=== PATIENT | female | born 1960 | race Caucasian/White ===

== ENCOUNTER → 2022-05-17 11:46 | Outpatient (BNVA) | payer MEDICARE, MEDICAID, SELFPAY | PROVIDERS: PCP Internal Medicine; Visit Provider Nurse Practitioner Family | DX: G40.909 Epilepsy, unspecified, not intractable, without status epilepticus (principal); R32 Unspecified urinary incontinence; R27.0 Ataxia, unspecified | CPT/HCPCS: 99202 ==

== ENCOUNTER → 2022-09-02 10:40 | Outpatient (BNVA) | payer MEDICARE, MEDICAID, SELFPAY | PROVIDERS: PCP Internal Medicine; Visit Provider Nurse Practitioner Family | DX: G40.909 Epilepsy, unspecified, not intractable, without status epilepticus (principal); G47.9 Sleep disorder, unspecified; G47.19 Other hypersomnia; M79.2 Neuralgia and neuritis, unspecified; R06.83 Snoring; R41.89 Other symptoms and signs involving cognitive functions and awareness | CPT/HCPCS: 99212 ==

== ENCOUNTER 2025-04-20 13:58 | Outpatient (AMB) | payer MEDICARE, MEDICAID, SELFPAY ==
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
[2025-04-20 14:04] VITALS: BP 108/70; PULSE 79; O2SAT 97; BMI 20.3
--- OUTSIDE RECORDS SUMMARY | 2025-04-20 15:12 | XMS_ITS ---
Author Organization [facility] Address [address] [place] [address] Phone Care Team Providers Care Corrections Identification Technician Name Role Phone Linda Rowland MD Primary Care Provider [phone] Community Health Worker Program Status:Ongoing (Active) Start date:01/19/2025 Enrollment date:01/19/2025 Enrollment reason:Referred from clinic Current support & services provided:Adult Related service episodes:[facility] - Food Insecurity (Active) Overview Community Health Worker Program Case Team Name Relationship Phone Js Garnett(Responsible Staff) Community Health Worker Continued Care and Services Coordination
--- OUTSIDE RECORDS SUMMARY | 2025-04-20 15:12 | XMS_ITS | Clinical Summary ---
Author Organization [facility] Address [address] [place] [address] Phone Care Team Providers Care Human Resources Training Manager Name Role Phone Linda Rowland MD Primary Care Provider [phone] Allergies Active Allergy Reactions Criticality Noted Date Comments Aspirin Unknown 06/11/2014 Azithromycin Rash,Unknown 06/11/2014 Cefaclor 07/22/2014 Cephalexin Unknown 06/11/2014 Ibuprofen Unknown 06/11/2014 menorrhagia Penicillins Unknown 06/11/2014 Prednisone Anaphylaxis High 06/04/2014 Tetracyclines 02/05/2021 Medications ergocalciferol (VITAMIN D-2) 1,250 mcg (50,000 unit) capsule TAKE 1 CAPSULE BY MOUTH 1 TIME A WEEK 12 capsule 1 4 Active folic acid (FOLVITE) 1 mg tablet TAKE 1 TABLET BY MOUTH DAILY 90 tablet 2 4 Active acetaminophen (TYLENOL) 500 mg tablet Take 1 tablet (500 mg total) by mouth if needed. 1 Active EPINEPHrine (EpiPen 2-Jayden) 0.3 mg/0.3 mL injection Inject 1 Dose as directed if needed (for Other.). 9 Active thiamine (Vitamin B-1) 100 mg tablet Take 1 tablet (100 mg total) by mouth 1 (one) time each day. 0 Active lidocaine HCL (Alocane Emergency Burn) 4 % pads, medicated Apply 2 patches topically. 4 Active hydrocortisone 2.5 % cream Apply topically 2 (two) times a day. Active B complex tablet Take 1 tablet by mouth 1 (one) time each day. 1 Active betamethasone dipropionate (DIPROSONE) 0.05 % ointment Apply topically 2 (two) times a day. Active multivitamin (Multiple Vitamins) tablet Take 1 tablet by mouth 1 (one) time each day. 5 Active ferrous sulfate (FeroSuL) 325 mg (65 mg elemental iron) tablet Take 1 tablet (325 mg total) by mouth 3 (three) times a week. 30 tablet 5 5 Active docusate sodium (COLACE) 100 mg capsule Take 1 capsule (100 mg total) by mouth 2 (two) times a day. 180 capsule 3 5 Active pantoprazole (PROTONIX) 40 mg EC tablet TAKE 1 TABLET BY MOUTH DAILY 90 tablet 1 5 Active DULoxetine (CYMBALTA) [address] capsule TAKE 1 CAPSULE BY MOUTH DAILY 90 capsule 1 5 Active gabapentin (NEURONTIN) 600 mg tablet Take 1 tablet (600 mg total) by mouth 3 (three) times a day. 90 each 5 5 Active cefpodoxime (VANTIN) 200 mg tablet Take 1 tablet (200 mg total) by mouth every 12 (twelve) hours. for 5 days 5 Active lacosamide (VIMPAT) 100 mg tablet Take 1 tablet (100 mg total) by mouth 2 (two) times a day. 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, unspecified ([facility] V24, [facility] V28) 08/04/2024 Epilepsy, unspecified, not i ntractable, without status epilepticus ([facility] V24, [facility] V28) 08/04/2024 Major depressive disorder, r ecurrent, unspecified ([facility] V24) 08/04/2024 Anxiety disorder, unspecified 08/04/2024 Incontinence without sensory awareness 5 Full incontinence of feces 08/04/2024 SOB (shortness of breath) 10/01/2023 Syncope 10/01/2023 Other chest pain 03/28/2022 Congestive heart failure ([facility] V24, [facility] V 28) 04/25/2021 Essential hypertension 02/05/2021 Assessment & Plan (09/15/2024 12:37 PM EST): Mitral valve regurgitation 02/05/2021 Assessment & Plan (09/15/2024 12:37 PM EST): Anxiety 06/22/2018 Alcohol dependence ([facility] V24, [facility] V28) Overview (07/15/2024): History alcohol withdrawal 03/2018 Hepatitis C virus 04/10/2018 Hyperlipidemia 04/10/2018 Depression 01/02/2018 Bowel incontinence 11/21/2017 Foot fracture, left 11/21/2017 Overview (07/15/2024): 11/2017 Neuropathic pain 11/21/2017 Hematuria 08/04/2017 Seizure disorder ([facility] V24, [facility] V28) 09/2016 Assessment & Plan (09/15/2024 12:37 PM EST): Orders: Ambulatory referral to Neurology; Future Urinary incontinence without sensory awareness 1 Decubitus ulcer of coccygeal region 07/20/2014 Encounters Date Type Department Care Team Description 04/11/2025 Telephone Internal Medicine [facility] [address] [phone] Zahraa Dent MA 03/18/2025 Telephone Internal Medicine [facility] [address] [address] Linda Rowland MD 03/18/2025 Telephone Internal Medicine [facility] [address] [address] Zahraa Dent [place] 03/17/2025 1:30 PM EDT Office Visit Internal Medicine [facility] [address] [address] Linda Rowland MD Seizure disorder ([facility] V24, [facility] V28) (Primary Dx) 03/16/2025 Telephone Internal Medicine [facility] [address] [address] Linad Rowland MD 03/16/2025 Telephone Internal Medicine [facility] [address] [address] Colon, AVERY Vital 03/14/2025 [place] Internal [place] [facility] [address] [address] Linda Rowland MD 03/04/2025 11:00 AM EDT Office Visit Internal Medicine [address] [address] Linda Rowland MD Seizure disorder (CMS/HCC V24, CMS/HCC V28) (Primary Dx); Mixed hyperlipidemia; Essential hypertension 03/04/2025 Telephone Internal Medicine [facility] [address] [address] Linda Rowland MD 03/04/2025 Telephone Internal Medicine [facility] [address] [address] Linda Rowland MD 03/01/2025 Telephone Internal Medicine [facility] [address] [address] Colon, AVERY Vital 03/01/2025 [place] Internal Medicine [facility] [address] [address] Colon, AVERY Vital 02/18/2025 Telephone Internal Medicine [facility] [address] [address] Colon, AVERY Vital 02/18/2025 Telephone Internal Medicine [facility] [address] [address] Colon, AVERY Vital 02/16/2025 Telephone Internal Medicine [facility] [address] [address] Linda Rowland MD 02/15/2025 Telephone Internal Medicine [facility] [address] [address] Linda Rowland MD 02/08/2025 Telephone Internal Medicine [facility] [address] [address] Zahraa Dent MA 02/08/2025 Telephone Internal Medicine [facility] [address] [address] Zahraa Dent MA 02/07/2025 Telephone Internal Medicine [facility] [address] [address] Linda Rowland MD 02/04/2025 Telephone Internal Medicine [address] [address] Linda Rowland MD 02/04/2025 Telephone Internal [address] [address] Linda Rowland MD 01/31/2025 Telephone Internal Medicine [facility] [address] [address] Linda Rowland MD 01/24/2025 Telephone Internal Medicine [address] [address] Zahraa Dent MA 01/19/2025 Telephone [place] [facility] [address] [place] [address] Js Garnett 01/18/2025 Telephone Internal Medicine [facility] [address] [address] Zahraa Dent MA from Last 3 Months Immunizations Immunization Administration Dates Next Due PPD Test 08/12/2002 Surgical History Surgery Date Site/Laterality Comments OTHER SURGICAL HISTORY PROCEDURE: MS COLECTOMY PARTIAL W/ANASTOMOSIS Medical History Medical History Date Comments Depression 01/02/2018 DX:Depression Anxiety 06/22/2018 DX:Anxiety Bowel incontinence 11/21/2017 DX:Bowel inco ntinence Decubitus ulcer of coccygeal region 07/20/2014 DX:Decubitus ulcer of coccygeal region Hematuria 08/04/2017 DX:Hematuria Hepatitis C virus 04/10/2018 DX:Hepatitis C virus Hyperlipidemia 04/10/2018 DX:Hyperlipidemi a Neuropathic pain 11/21/2017 DX:Neuropathic pain Seizure disorder (CMS/HCC V2 4, CMS/HCC V28) 04/22/2017 DX:Seizure disorder (HCC) Urinary incontinence without sensory awareness 07/20/2014 DX:Urinary incontinence with out sensory awareness History of colon cancer 06/22/2018 DX:Histo ry of colon cancer Alcohol dependence (CMS/HCC V24, CMS/HCC V28) 04/10/2018 DX:Alcohol dependence (HCC); COMMENT: History alcohol withdrawal 03/2018 Foot fracture, left 11/21/2017 DX:Foot frac ture, left; COMMENT: 11/2017 Benign essential hypertension DX :Benign essential hypertension Chronic hepatitis C (CMS/HCC V24, CMS/HCC V28) DX:Chronic hepatitis C (HCC) Cirrhosis of liver (CMS/HCC V24, CMS/HCC V28) DX:Cirrhosis of liver (HCC) Demyelinating neuropathy DX:Demy elinating neuropathy Drug or alcohol risk assessm ent or counseling DX:Drug or alcohol risk asse ssment or counseling Endometriosis DX:Endometriosis History of traumatic brain injury DX:History of traumatic brain injury Limitation due to disability DX: Limitation due to disability Recurrent UTI DX:Recurrent UTI Smoking addiction DX:Smoking add iction Status post hip surgery DX:Statu s post hip surgery Hypotension DX:Hypotension Recurrent UTI DX:Recurrent UTI Social History Tobacco Use Types Packs/Day Years Used Date Smoking Tobacco: Former Smokeless Tobacco: Never Tobacco Cessation:Counseling Given: Not Answered Alcohol Use Standard Drinks/Week Comments Not Currently 0 (1 standard drink = 0.6 oz pur e alcohol) Housing Instability Answer Date Recorde d Are you worried that in the next 2 months you may not have stable housing? No 01/19/2025 Access to Healthcare Answer Date Record ed Within the last 3 months, ho w many times did you visit the emergency department for your medical care? 1 01/19/2025 Financial Risk Answer Date Recorded How hard is it for you to pa y for the very basics like food, housing, medical care, and air conditioning / heating? Somewhat hard 01/19/2025 Transportation Answer Date Recorded Has the lack of transportati on kept you from meetings, work, or from getting things needed for daily living? No Has the lack of transportati on kept you from medical appointments or from getting medications? No 01/19/2025 Food Risk Answer Date Recorded Within the past 12 months we worried whether our food would run out before we got money to buy more. Sometimes true 025 Within the past 12 months th e food we bought just didn't last and we didn't have money to get more. Sometimes true 01/19/2025 Living Situation Answer Date Recorded What is your living situation? Unrecognized valu e 01/19/2025 Comments No Sex and Gender Information Value Date Recorded Sex Assigned at Not on file Legal Sex Female 6:55 AM EST Gender Identity Not on file Sexual Orientation Not on file Obstetrics History Last Filed Vital Signs Vital Sign Reading Time Taken Comments Blood Pressure 112/62 03/17/2025 1:57 PM EDT Pulse 87 03/17/2025 1:57 PM EDT Temperature 36.6 C (97.9 F) 03/17/2025 1:57 PM EDT Respiratory Rate 18 03/17/2025 1:57 PM EDT Oxygen Saturation 96% 03/17/2025 1:57 PM EDT Inhaled Oxygen Concentration - - Weight 53.1 kg (117 lb) 03/17/2025 1:57 PM EDT Height 160 cm (5' 3 ) 03/17/2025 1:57 PM EDT Body Mass Index 20.73 03/17/2025 1:57 PM EDT Plan of Treatment Upcoming Encounters Date Type Department Care Team (Late st Contact Info) Description 05/05/2025 1:10 PM EDT Office Visit [facility] [address] [facility] [address] [place] [phone] Zahraa Alex PA [address] [facility] [address] [place] [address] 07/26/2025 11:00 AM EST Office Visit Internal Medicine - [place] 175 [facility] [address] [place] [phone] Linda Rowland MD 175 [facility] [address] [place] [phone] Health Maintenance Due Date Last Done Comments Breast Cancer Screening 1960 DTaP,Tdap,and Td Vaccines (1 - Tdap) 1977 Hepatitis A Vaccines (1 of 2 - Risk 2-dose series) 1977 Zoster Vaccines (1 of 2) 2008 Hepatitis B Vaccines (1 of 3 - Risk 3-dose series) 2018 RSV Immunization Adult Patie nts (1 - Risk 60-74 years 1-dose series) 2018 Pneumococcal Vaccine: 50+ Ye ars (2 of 2 - PCV) 06/05/2019 06/05/2018 Colorectal Cancer Screening: Stool Based Tests (FOBT/FIT) 06/29/2022 Osteoporosis Screening (Bone Density Screening) 06/29/2022 Hypertension/CHF/CAD Annual BMP Blood Test 07/04/2024 07/04/2023 COVID-19 Vaccine (1 - 2023-2 5 season) 2025 Influenza Vaccine (#1) 2025 Falls Risk Assessment 09/15/2025 09/15/2024 Medicare Annual Wellness Visit 09/15/2025 09/15/2024 Social Influencers of Health Screening 01/19/2026 01/19/2025 Cholesterol Screening (Lipid Panel) 07/04/2028 07/04/2023 Hepatitis C Screening Completed 06/24/2019 Depression Screening Completed 09/15/2024 HIB Vaccines Aged Out No longer eligi ble based on patient's age to complete this topic HPV Vaccines Aged Out No longer eligi ble based on patient's age to complete this topic IPV Vaccines Aged Out No longer eligi ble based on patient's age to complete this topic MMR Vaccines Aged Out No longer eligi ble based on patient's age to complete this topic Meningococcal ACWY Vaccine Aged Out N o longer eligible based on patient's age to complete this topic Meningococcal B Vaccine Aged Out No l onger eligible based on patient's age to complete this topic RSV Immunization Patients Un jinny 20 months Aged Out No longer eligible b ased on patient's age to complete this topic Varicella Vaccines Aged Out No longer eligible based on patient's age to complete this topic Goals Goal Patient Goal Type Associated Problems Recent Progress Patient-Stated? Author Keep patient safe at home General No Niki Gallardo, RN Note: F/u with med compliance stategies as needed Procedures Procedure Name Priority Date/Time Associated Diagnosis Comments ANNUAL BMP BLOOD TEST Routine 07/04/2023 LIPID PANEL Routine 07/04/2023 HEPATITIS C SCREENING Routine 06/24/2019 from Last 3 Months or Most Recently Relevant to Health Maintenance Results * Annual BMP Blood Test (07/04/2023) Pathologist [facility] Annual BMP Blood Test abstracted [facility] Provider HEALTH MAINTENANCE Final Result * (ABNORMAL) Lipid panel (07/04/2023) [facility] LDL/HDL Ratio 4 0 - 4 Triglycerides 102 0 - 150 mg/dL Cholesterol 203(A) 0 - 200 mg/dL HDL 50 >=40 mg/dL LDL Cholesterol 133(A) 0 - 100 mg/dL Blood Venous blood specimen / Unknown Historical Provider LAB BLOOD ORDERABLES Arcelia l Result * Hepatitis C Screening (06/24/2019) [facility] Hepatitis C Screening abstracted [facility] Provider HEALTH MAINTENANCE Final Result from Last 3 Months or Most Recently Relevant to Health Maintenance Insurance MEDICARE MEDICAID - [place] Care Teams Human Resources Training Manager Relationship Specialty Start Date End Date Linda Rowland MD [address] [place] [address] [address] [place] [address] PCP - General Internal Medicine 05/22/18
--- OUTSIDE RECORDS SUMMARY | 2025-04-20 15:12 | XMS_ITS | Encounter Summary ---
Author Organization [facility] Address [address] [place] [address] Care Team Providers Care Laborer Livestock Name Role Phone Linda Rowland MD Primary Care Provider [phone] Reason for Visit * Reason Onset Date Comments FYI: vna 03/18/2025 Encounter Details Date Type Department Care Team ([facility] st Contact Info) Description 03/18/2025 Telephone Internal Medicine - [place] [address] [place] [phone] Linda Rowland MD [address] [place] [address] Social History Tobacco Use Types Packs/Day Years Used Date Smoking Tobacco: Former Smokeless Tobacco: Never Alcohol Use Standard Drinks/Week Comments Not Currently [...] on file Sexual Orientation Not on file documented as of this encounter Progress Notes * Alexa Blank - 04/20/2025 11:52 AM EDT [facility] called and stated that they received a referral for this patient and she has been accepted and will be starting services tomorrow. Cb# [phone] * Zahraa Dent MA - 03/23/2025 10:14 AM EDT Spoke with sister she still wants [facility] called left message with [facility] waiting on a response * Alexa Blank - 03/23/2025 9:24 AM EDT Pt sister called and requested a call back from Zahraa because she would like to discuss the best options for patients home care services. Please advise Cb# [phone] * Alexa Blank - 03/18/2025 2:54 PM EDT Johnnie trotter called and stated that the pt was not home for their nurse visit today. Cb# [phone] documented in this encounter Plan of Treatment Upcoming Encounters Date Type Department Care Team (Late st Contact Info) Description 05/05/2025 1:10 PM EDT Office Visit [facility] [address] [place] [phone] Zahraa Alex PA [address] [place] [address] 07/26/2025 11:00 AM EST Office Visit Internal Medicine - [place] [address] [place] [phone] Linda Rowland MD [address] [place] [address] documented as of this encounter Goals Goal Patient Goal Type Associated Problems Recent Progress Patient-Stated? Author Keep patient safe at home Niki Max, RN Note: F/u with med compliance stategies as needed documented as of this encounter Visit Diagnoses Not on filedocumented in this encounter Additional Health Concerns Assessment Noted Time PHQ-9 Depression Total Score: 1 09/15/19 25 10:32 AM EST A fall risk assessment has been complete d for the patient 09/15/2024 10:28 AM EST documented as of this encounter Care Teams Laborer Livestock Relationship Specialty Start Date End Date Linda Rowland MD [address] [facility] [address] [place] [phone] PCP - General Internal Medicine 05/22/18 documented as of this encounter
--- OUTSIDE RECORDS SUMMARY | 2025-04-20 15:12 | XMS_ITS ---
Author Organization [facility] Address [address] [place] [address] Phone Care Team Providers Care Wellness Coordinator Name Role Phone Linda Rowland MD Primary Care Provider [phone] [facility] - Food Insecurity Status:Ongoing (Active) Start date:01/19/2025 Enrollment date:01/19/2025 Enrollment reason:Referred by Care Team Related social drivers of health:Food Risk Related program episode:Community Health Worker Program (Active) Overview Community Health Worker Program - Food Insecurity Service Episode Case Team Name Relationship Phone Js Garnett(Responsible Staff) Community Health Worker Continued Care and Services Coordination
--- OUTSIDE RECORDS SUMMARY | 2025-04-20 15:12 | XMS_ITS | Data Portability ---
Author Organization [facility] [address], Main Office Address [address] [facility] [facility] [address] [place] [address] Care Team Providers Care Modeling Analyst Name Role Phone [facility] OTHER TREVA ALEJANDRA Primary Care Provider [phone] Assessment Encounter Date Assessment Date Assessment LastModified by Organization Details LastModified Time 10/13/2024 10/13/2024 64yo patient who lives alone presenting with change in mental status with working diagnosis of post-ictal state after negative work-up. Noted increased paranoid ideation while hospitalized with initiation of low dose trazodone with good effect. Noted good progression with physical therapy. [email or web address] Not available 10/13/2024 09:52:31 Plan of Treatment Reminders Order Date Submit Date Provider Last Modified By Organization Details Last Modified Time Details Appointments None record ed. Lab None record ed. Referral None record ed. Procedures None record ed. Surgeries None record ed. Imaging None record ed. Medication Orders None record ed. Patient TargetsNo targets recorded. Patient InstructionsNo instructions recorded. Reason for Referral None Reported. 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 Active 2024 Not Available [facility] 16:19:37 Gastroesophag eal reflux disease without esophagitis 117469297 Active 2024 Not Available [facility] 16:20:02 Dementia 20805185 Active 2024 Not Available [facility] 16:20:04 Metabolic encephalopath y 78406637 Active 2024 Not Available [facility] 20:55:16 Altered mental status 399184777 Active 2024 Not Available [facility] 20:59:27 Delusional disorder 31371418 Active 2024 Not Available [facility] 12:39:58 Diastolic heart failure 152262080 Active 2024 Not Available [facility] 12:40:34 Disorder of nerve root and/or plexus 393805782 Active 2024 Not Available [facility] 12:41:10 Disorder in remission 578541406 Active 2024 Not Available [facility] 12:41:46 Hypokalemia 41002757 Active 2024 Not Available [facility] 12:42:22 Urinary tract infectious disease 58945922 Active 2024 Not Available [facility] 12:42:58 Cirrhosis of liver 23225429 Active 2024 Not Available [facility] 12:43:34 Muscle weakness 95325578 Active 2024 Not Available [facility] 16:20:05 Unsteady when standing 500246465 Active 2024 Not Available [facility] 16:19:24 Incoordinatio n 957732589 Active 2024 Not Available [facility] 16:19:25 Problem Notes None recorded. Medical Equipment None Reported. Allergies Allergen ID Allergen Name Allergen Category Reaction Reaction Severity Criticality Documentation Date Start Date Code Code System Note Provider Name and Address Organization Details Recorded Time 35986 prednison e medicatio n Not available Not available Not available 10/10/2024 8640 RxNorm Not Available [facility] 19:38:36 63018 Product containin g penicilli n (product) medicatio n Not available Not available Not available 10/10/2024 68363 8001 SNOMED Not Available [facility] 19:38:36 95697 Keflex medicatio n Not available Not available Not available 10/10/2024 93099 7 RxNorm Not Available [facility] 19:38:36 76151 ibuprofen medicatio n Not available Not available Not available 10/10/2024 5640 RxNorm Not Available [facility] 19:38:36 73074 egg extract food,medi cation Not available Not available Not available 10/10/20242014 10643 15 RxNorm Not Available [facility] 19:38:36 20991 Ceclor medicatio n Not available Not available Not available 10/10/202459415 5 RxNorm Not Available [facility] 19:38:36 64675 azithromy lilli medicatio n Not available Not available Not available 10/10/2024 19433 RxNorm Not Available [facility] 19:38:36 66419 aspirin medicatio n Not available Not available Not available 10/10/2024 1191 RxNorm Not Available [facility] 19:38:36 Medications Name Sig Start Date Stop Date Status Note LastModified by Organization Details LastModified Time acetaminophe n 325 mg tablet Give 325 mg by mouth every 24 hours as needed for Mild Pain Do not exceed 3 grams in 24 hours.Total 650 mg 2024 active Not Available Not Available Not Avai lable oxcarbazepin e 300 mg tablet Give 3 tablet by mouth two times a day for Epilepsy 2024 active Not Available Not Available Not Avai lable pantoprazole 40 mg tablet,delay ed release Give 40 mg by mouth in the morning for Indigestion 2024 active Not Available Not Available Not Avai lable Desyrel 50 mg tablet Give 25 mg by mouth two times a day for Anxiety 2024 active Not Available Not Available Not Avai lable Laxative (sennosides) 8.6 mg tablet Give 1 tablet by mouth every 24 hours as needed for Constipatio n 2024 active Not Available Not Available Not Avai lable Vitamin D2 1,250 mcg (50,000 unit) capsule Give 64354 IU by mouth one time a day every 7 day(s) for Malnuutriti on Do not chew or crush. 2024 active Not Available Not Available Not Avai lable Stulex 100 mg tablet Give 100 mg by mouth two times a day for Constipatio n 2024 active Not Available Not Available Not Avai lable Folvite 1 mg tablet Give 1 mg by mouth in the morning for Malnutritio n 2024 active Not Available Not Available Not Avai lable duloxetine 30 mg capsule,gretel yed release Give 30 mg by mouth in the morning for Depression May cause drowsiness, avoid alcohol, do not crush/chew, swallow whole 2024 active Not Available Not Available Not Avai lable gabapentin 400 mg tablet Give 400 mg by mouth three times a day for Neuropathic pain 2024 active Not Available Not Available Not Avai lable epinephrine 0.3 mg/0.3 mL injection syringe Inject 0.3 ml intramuscul gray as needed for Anaphylaxis , Loss of consciousne ss Repeat one time in 3 to 5 minutes. 2024 active Not Available Not Available Not Avai lable thiamine mononitrate (vitamin B1) 100 mg tablet Give 100 mg by mouth in the morning for Alcohol use remission 2024 active Not Available Not Available Not Avai lable sodium phosphates 19 gram-7 gram/197 mL enema Insert 1 unit rectally every 24 hours as needed for Constipatio n Use only if Bisacodyl Suppository is ineffective 2024 active Not Available Not Available Not Avai lable OneLAX Bisacodyl 10 mg rectal suppository Insert 1 suppository rectally every 24 hours as needed for constipatio n Use if Senna is Ineffective 2024 active Not Available Not Available Not Avai lable Vitals Date Recorded Body weight Heart rate Respiratory rate Body temperature Systolic And Diastolic Provider Name and Address Organization Details Last Updated DateTime 49843.4 7 g 84 /min 17 /min 97.8 [degF] 105/56 mm[Hg] JUVENTINO BERMAN, BOOKS BINDER [address], [address], [place], [address], [facility] [employer] 10:49:49 Social History Question Answer Notes LastModified by [email or web address] Earlier Media Details LastModified Time Tobacco Smoking Status Former Smoker JUVENTINO BERAMN, JENNIFER [address], [place], [address], [facility] [employer] 10/11/2024 09:44:16 Do You Have An Advance Directive? Yes Information not available 10/11/2024 What Is Your Code Status? DNR/DNI Information not available 10/11/2024 Do You Have A Medical Power Of Jack Spooler Tender? Yes Pt's Sister. Information not available 10/11/2024 What Was The Date Of Your Most Recent Tobacco Screening? 10/11/2024 Information not available 10/11/2024 How Much Tobacco Do You Smoke? No Information not available 10/11/2024 Has Tobacco Cessation Counseling Been Provided? No Information not available 10/11/2024 Sex: Unknown Functional Status Question Answer Note LastModified by [email or web address] Earlier Media Details LastModified Time Do you use any illicit or recreational drugs? No Information not available 10/11/2024 Do you or have you ever used any other forms of tobacco or nicotine? No Information not available 10/11/2024 What is your level of alcohol consumption? None Information not available 10/11/2024 Mental Status None recorded. Family History Nothing Reported. Medical History No medical history recorded. Gynecological HistoryNo gynecological history recorded. Obstetrics History GPAL:G 0 P 0 0 0 0 Past Encounters Encounter ID Performer Location Encounter Start Date Encounter Closed Date Diagnosis/Indication Diagnosis SNOMED-CT Code Diagnosis ICD10 Code Diagnosis IMO Codes Diagnosis Note [id number] JUVENTINO BERMANJENNIFER [facility] [address] [place] [address] 10/11/2024 08:57:55 10/13/2024 12:34:08 Dementia 60379287 F03.92 Worsening dementia, with Paranoia.S tarted trazodone 25 mg BID with significan t improvemen t, back to her baseline.W ill continue trazodone 35 mg BID.Monito r mood.Psych eval prn. Seizure disorder 5055650 02 G40.909 Oxcarbazep ine level on admission low. EEG with suspicion of epileptifo rm activity, however, no actual epileptifo rm activity noted on the video EEG report. ContinueOx carbazepin e 300mg BID.Monito r labs PRN. Depressive disorder 3548 9007 F32.A Duloxetine 30 mg daily.Asuncion tor moodPsych eval prn. Gastroesop hageal reflux disease without esophagitis 756933647 K21.9 Stable.Con tinue pantoprazo le 40 mg daily. Essential hypertension 13284703 I10 Hx of HTN.Nikita oliver is not on medication . 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 ContinueFo lic acid 1 mg daily.Thia mine 100 mg daily.Carmen min d 50,000 unit weekly.Mul ti vitamin daily.Asuncion tor and provide so Cirrhosis of liver due to chronic hepatitis C 6953517234 03 B18.2 Carrying dx.LFTs stable.Mon itor labs PRN. Neuropathy 814882739 G62 .9 Carrying dx.Continu e gabapentin 400 mg TID. [id number] Catherine Tyler MD [facility] [address] [place] [address] 10/13/2024 09:18:53 10/14/2024 14:59:32 Dementia 40222539 F03.92 Worsening dementia with medication nonadheren ce. Social support limited to sister who lives nearby. Affective component with paranoid ideation while hospitaliz ed with initiation of trazodone. Seizure disorder 9922375 02 G40.802 Oxcarbazep ine level on admission low. EEG with suspicion of epileptifo rm activity, however, no actual epileptifo rm activity noted on the video EEG report. Continue Oxcarbazep ine / Neurontin. Depressive disorder 3548 9007 F33.8 Duloxetine 30 mg daily.Asuncion tor moodPsych eval prn. Gastroesop hageal reflux disease without esophagitis 121129521 K21.9 Stable.Con tinue pantoprazo le 40 mg daily. Essential hypertension 53384813 I10 Hx of HTN.Nikita oliver is not on medication . 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 ContinueFo lic acid 1 mg daily.Thia mine 100 mg daily.Carmen min d 50,000 unit weekly.Mul ti vitamin daily.Asuncion tor and provide so Cirrhosis of liver due to chronic hepatitis C 6846854451 03 B18.2 Carrying dx.LFTs stable.Mon itor labs PRN. Neuropathy 086601319 G62 .9 Carrying dx.Continu e gabapentin 400 mg TID. [id number] DANIELLE ADORNO, SAMPLE MOUNTER-C [facility] [address] [place] [address] 10/14/2024 10:30:56 10/14/2024 15:29:50 Dementia 14056430 F03.92 Worsening dementia, with Paranoia.S tarted trazodone 25 mg BID with significan t improvemen t, back to her baseline.c ontinue trazodone 35 mg BID.f/up with pcp Seizure disorder 4657075 02 G40.909 Oxcarbazep ine level on admission low. EEG with suspicion of epileptifo rm activity, however, no actual epileptifo rm activity noted on the video EEG report. 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 ContinueFo lic acid 1 mg daily.Thia mine 100 mg daily.Carmen min d 50,000 unit weekly.Mul ti vitamin daily.f/up with pcpSW provided a packet of resourcese ncouraged abstinence from ETOH Cirrhosis of liver due to chronic hepatitis C 0851321369 03 B18.2 Carrying dx.LFTs stable, monitor outptf/up with pcp Neuropathy 351502390 G62 .9 Carrying dx.Continu e gabapentin 400 mg TID.f/up with pcp Health Concerns Section Related Observation LastModified by Organization Detai ls LastModified Time None Recorded Concern Status LastModified by Organization Details LastModified Time None Recorded Advance Directives Directive Y: Payers Insurance Date Sequence Insurance Name Policy Number Policy Cruz Covered Member ID Cruz Member ID Guarantor Name 12/27/2024 1 [place] Nora Ledesma [id number] Nora Ledesma 10/19/2024 2 [place] [facility] Nora Ledesma [id number] Nora Ledesma Notes Date Note Type Note Provider Name and Address Organization Details Recorded Time 10/11/2024 text/html Nora is a 64 y/o female patient admitted to [facility] 10/10/24 for rehab after hospitalization for worsening dementia. PMH significant for HF with preserved ejection fraction, TBI, sensory ganglionopahty who follows at [facility], seizure disorder on oxcarbazepine, HTN, ETOH disorder in remission, Hep C with cirrhosis, recurrent UTIs, depression. Pt presented to [facility] on 10/05/24 after her sister found her unresponsive on the couch. Labs largely unremarkable. CT head on admission WNL. Neurology were consulted, who recommended obtaining a brain MRI with and without contrast, however only noncontrast portion was done and it was motion degraded as well. Discussed with neurology, images adequate, no need for further workup. Per discussion with sister, it seems that the patient likely has worsening dementia.The hospital course complicated with paranoid, pt was thinking people are talking about her. Started on Trazodone 25 mg BID with significant improvement, back to baseline and discharged to rehab. Oxcarbazepine level on admission low. EEG with suspicion of epileptiform activity, however, no actual epileptiform activity noted on the video EEG report. Upon assessment today, VSS, patient was sitting in her bed, resting, NAD.Pt alert and oriented to person and time, not place.Pt stating she feels better, having good appetite, sleeps well and no acute concerns today. MOLST form reviewed. DNR. DNI, No Gtube.Man assessment done today, moderate risk. JUVENTINO BERMAN, BOOKS BINDER [address] [facility], [address], [place], [address], [facility] [employer] 10/11/2024 10:57:58 10/13/2024 text/html ROS as noted in the HPI Nora is a 64 y/o female who lives alone with mild-moderate patient admitted from [facility] after found to be confused by sister. Patient is thought to be post-ictal after suspicion of missing AED doses. The patient had an extensive work-up at the hospital including CT, MRI as well with Neurology consultation. Patient started on trazodone for noted confusion with paranoid ideation with good response. PMH significant for HF with preserved ejection fraction, TBI, sensory ganglionopathy who follows at [facility], seizure disorder on oxcarbazepine, HTN, ETOH disorder in remission, Hep C with cirrhosis, recurrent UTIs, depression. Social history significant for never having , no children; has a pet cat. Sister lioves nearbyNo active tobacco or alcohol use. Distant alcohol use. Noted SAMPLE MOUNTER review of MOLST form reviewed:. DNR. DNI, No G-tube. Catherine Tyler MD [address] [facility], [address], [place], [address], [employer] 10/13/2024 09:54:40 10/14/2024 text/html ROS as noted in the HPI Nora is a 64 y/o female being seen today for a discharge summary visit. Pt lives alone with mild-moderate patient admitted from [facility] after found to be confused by sister. Patient is thought to be post-ictal after suspicion of missing AED doses. The patient had an extensive work-up at the hospital including CT, MRI as well with Neurology consultation. Patient started on trazodone for noted confusion with paranoid ideation with good response. Nursing has no concerns about her leaving. She is medically clear for dc home this afternoon with meds and services. She has a PCP in the community. Discussed with elementary school social worker about her active alcohol use and he will provide her with a packet resources on dc. Her sister is supportive and she has at home help with a [employer]. PMH significant for HF with preserved ejection fraction, TBI, sensory ganglionopathy who follows at [facility], seizure disorder on oxcarbazepine, HTN, ETOH disorder in remission, Hep C with cirrhosis, recurrent UTIs, depression. DANIELLE ADORNO NP-C [address] [facility], [address], [place], [address], [employer] 10/14/2024 10:47:51 OBGyn Episode No OBEpisode recorded.
--- OUTSIDE RECORDS SUMMARY | 2025-04-20 15:12 | XMS_ITS | Encounter Summary ---
Author Organization [facility] Address [address] [place] [address] Care Team Providers Care Olericulture Professor Name Role Phone Linda Rowland MD Primary Care Provider [phone] Reason for Visit * Reason Onset Date Comments [facility] INTAKE 03/16/2025 Encounter Details Date Type Department Care Team ([facility] st Contact Info) Description 03/16/2025 Telephone Internal Medicine - [place] [address] [facility] [address] [place] [address] Zahraa Dent MA Social History Tobacco Use Types Packs/Day Years [...] as of this encounter Progress Notes * Zahraa Dent MA - 04/19/2025 11:50 AM EDT Faxed referral to [facility] Waiting maria d responose * Zahraa Dent MA - 04/07/2025 10:09 AM EDT Faxed referral over to [facility] ,waiting on a response * Zahraa Dent MA - 03/28/2025 10:36 AM EDT Re-faxed referral to [facility] * Zahraa Dent MA - 03/16/2025 10:09 AM EDT Faxed referral to [facility] left voice mail for response documented in this encounter Plan of Treatment Upcoming Encounters Date Type Department Care Team (Late st Contact Info) Description 05/05/2025 1:10 PM EDT Office Visit [facility] [address] [facility] [address] [place] [address] Zahraa Alex PA [address] [place] [address] 07/26/2025 11:00 AM EST Office Visit Internal Medicine - [place] [address] [facility] [address] [place] [phone] Linda Rowland MD [address] [facility] [address] [place] [address] documented as of this encounter Goals Goal Patient Goal Type Associated Problems Recent Progress Patient-Stated? Author Keep patient safe at home Niki Max, RN Note: F/u with med compliance stategies as needed documented as of this encounter Visit Diagnoses Not on filedocumented in this encounter Additional Health Concerns Assessment Noted Time PHQ-9 Depression Total Score: 1 09/15/19 10:32 AM EST A fall risk assessment has been complete d for the patient 09/15/2024 10:28 AM EST documented as of this encounter Care Teams Olericulture Professor Relationship Specialty Start Date End Date Linda Rowland MD [address] [facility] [address] [place] [address] PCP - General Internal Medicine 05/22/18 documented as of this encounter
--- OUTSIDE RECORDS SUMMARY | 2025-04-20 15:12 | XMS_ITS | Encounter Summary ---
Author Organization [facility] Address [address] [place] [address] Care Team Providers Care Toll Bridge Attendant Name Role Phone Linda Rowland MD Primary Care Provider [phone] Reason for Visit * Reason Onset Date Comments Request For Order(s) 04/11/2025 [facility] Order # [id number] Encounter Details Date Type Department Care Team ([facility] st Contact Info) Description 04/11/2025 Telephone Internal Medicine - [place] [address] [facility] [address] [place] [address] Zahraa Dent MA Social History Tobacco Use [...] Record ed Within the last 3 months, thiago cheema many times did you visit the emergency [...] Progress Notes * Zahraa Dent MA - 04/18/2025 7:04 AM EDT Scanned into chart and faxed to [employer] [phone] * Zahraa Dent MA - 04/11/2025 10:53 AM EDT [email or web address] Order # [id number] Please sign & documented in this encounter Plan of Treatment Upcoming Encounters Date Type Department Care Team (Late st Contact Info) Description 05/05/2025 1:10 PM EDT Office Visit [facility] [address] [facility] [address] [place] [address] Zahraa Alex PA 300 [facility] [address] [place] [address] 07/26/2025 11:00 AM EST Office Visit Internal Medicine - [place] 175 [facility] [address] [place] [phone] Linda Rowland MD 175 [facility] [address] [place] [phone] documented as of this encounter Goals Goal [...] documented as of this encounter Care Teams Toll Bridge Attendant Relationship Specialty Start Date End Date Linda Rowland MD [address] [phone] PCP - General Internal Medicine 05/22/18 documented as of this encounter
--- OUTSIDE RECORDS SUMMARY | 2025-04-20 15:12 | XMS_ITS ---
Author Name [facility] Organization Unknown Care Team Organization Name Specialty Phone Email Start Date End Da te [facility] ACO 03/09/2025 [facility] Mary Ellen Barakat Primary [facility] 03/27/2023 03/08/2024 [facility] Linda Rowland Primary Care 05/28/2022 03/08/20 24
--- OUTSIDE RECORDS SUMMARY | 2025-04-20 15:12 | XMS_ITS | Clinical Summary ---
Author Organization [facility] Address [address] [place] [id number] Phone Care Team Providers Care Agricultural Technician Name Role Phone Linda Rowland MD Primary Care Provider Allergies Active Allergy Reactions Criticality Noted Date Comments Aspirin Unknown 06/11/2014 Azithromycin Unknown 06/11/2014 Ibuprofen Unknown 06/11/2014 Keflex (Cephalexin) Unknown 06/11/2014 Penicillins Unknown 06/11/2014 Prednisone Anaphylaxis 06/04/2014 Immunizations Immunization Administration Dates Next Due Influenza, Unspecified Formulation 06/08(Deferred: Patient Decision - reports reaction, encouraged to f/u w/ PCP or rehab once d/c';d) Social History Tobacco Use Types Packs/Day Years Used Date Smoking Tobacco: Every Day Comments Unknown Sex and Gender Information Value Date Recorded Sex Assigned at Not on file Legal Sex Female 6:51 PM EST Gender Identity Not on file Sexual Orientation Not on file Last Filed Vital Signs Vital Sign Reading Time Taken Comments Blood Pressure 96/64 10/10/2014 10:11 AM EDT Pulse 76 10/10/2014 10:11 AM EDT Temperature - - Respiratory Rate - - Oxygen Saturation - - Inhaled Oxygen Concentration - - Weight 41.3 kg (91 lb) 10/10/2014 10:11 AM EDT Height - - Body Mass Index - - Plan of Treatment Not on file Medical Devices Not on file Insurance [address] [place] [id number] MEDICARE PART A [place] [address] [place] [id number] MEDICARE PART A & [place] MEDICARE PART A & B HEALTH MEDICARE PART A & B HEALTH MEDICARE PART A & B Member Subscriber Plan / Payer (Ef fective 2010-Present) Name:Nora Ledesma Member ID:[id number] Relation to Subscriber:Self Name:Nora Ledesma Subscriber ID:[id number] Payer ID:[id number] Group ID:Not on file Type:Medicare Address: [address] [employer] [address] & B [address]ALTH [address] [place] [address] MEDICARE PART A & B [facility] [address] [place] [address] MEDICARE PART A & B [facility] Advance Directives For more information, please contact: [phone] (9AM - 5PM Samantha/[facility], Friday-Friday) Documents on File Type Date Recorded Patient Manager Domestic Expl anation Advance Directive - Non Epic LMR 07/07/2014 12:00 AM Care Teams Agricultural Technician Relationship Specialty Start Date End Date Linda Rowland MD [address] [place] [address] [address] [place] [address] PCP - General 09/22/14 Additional Source Comments The information contained in this document represents components of the legal health record. It is not the complete legal health record.[facility]
== END 2025-04-20 14:39 | disposition home or self-care (01) ==
LOC: HO.HSMS 13:58
PROVIDERS: PCP Internal Medicine; Visit Provider Psychiatry & Neurology Neurology
DX: G40.909 Epilepsy, unspecified, not intractable, without status epilepticus (principal); R41.89 Other symptoms and signs involving cognitive functions and awareness; R06.83 Snoring; G47.19 Other hypersomnia; G62.9 Polyneuropathy, unspecified
CPT/HCPCS: 99204; G2211

== ENCOUNTER → 2025-04-20 13:58 | Outpatient (BNVA) | payer MEDICARE, MEDICAID, SELFPAY | PROVIDERS: PCP Internal Medicine; Visit Provider Psychiatry & Neurology Neurology | DX: G40.909 Epilepsy, unspecified, not intractable, without status epilepticus (principal); R41.89 Other symptoms and signs involving cognitive functions and awareness; R06.83 Snoring; G47.19 Other hypersomnia; G62.9 Polyneuropathy, unspecified | CPT/HCPCS: 99202 ==